=== PATIENT | female | born 1995 | race Caucasian/White ===

== ENCOUNTER → 2020-07-22 | Outpatient (CLI) | payer OTHER ==
--- NOTE | 2020-07-22 11:10 | Diagnostic Imaging Report ---
Indication: Neck lump. Right lobe of thyroid measures 5.2 x 1.7 x 2.0 cm and the left lobe measures 4.6 x 1.3 x 1.4 cm. Isthmus is 4 mm in thickness. Both lobes of thyroid are heterogeneous. There is a mixed echogenicity nodule in the mid right lobe measuring 1.1 x 0.8 x 1.0 cm. No microcalcifications are seen. No other thyroid masses are detected. IMPRESSION: Heterogeneous thyroid. There is a nodule in the mid right lobe.. This is a TI-RADS 4 lesion. Follow-up ultrasound at 1 year is recommended to confirm stability. Dictated by: Dictated on workstation # [id number]
== END ==
LOC: RAD 08:36
PROVIDERS: ATTEND Obstetrics & Gynecology
DX: E04.2 Nontoxic multinodular goiter (principal)
CPT/HCPCS: 76536

== ENCOUNTER → 2022-05-01 | Outpatient (CLI) | payer BC ==
--- NOTE | 2022-05-01 16:17 | Diagnostic Imaging Report ---
INDICATION: survey. TECHNIQUE: Multiple real-time grayscale images were obtained over the gravid uterus. COMPARISON: None. FINDINGS: There is a single live fetus in breech presentation. heart rate was recorded at 156 bpm. Placenta is posterior. No previa is seen. Amniotic fluid index is 12.3 cm. Cervical length is 4.1 cm. survey shows kidneys, bladder and stomach to be unremarkable. brain is unremarkable. There is a four-chamber heart. There is a three-vessel cord with normal insertion. spine is unremarkable. Biometrical measurements are as follows: Biparietal 5.40 cm, age 22 weeks 4 days. Head circumference 21.26 cm, age 23 weeks 3 days. Abdominal circumference 17.32 cm, age 22 weeks 2 days. Femur length 4.09 cm, age 23 weeks 2 days. Sonographic estimate age: 23 weeks 0 days. Sonographic estimated date of delivery: 08/28/2022. Estimated Weight: 531 gm (+/- 78 gm). LMP percentile: 9%. heart rate: 156 beats per minute. number: 1 of 1. IMPRESSION: Single live IUP approximately 23 weeks 0 days gestational age. Estimated date of confinement, sonographically, is 08/28/2022. Dictated by: Dictated on workstation # [id number]
== END ==
LOC: RAD 12:30
PROVIDERS: ATTEND Obstetrics & Gynecology
DX: Z34.02 Encounter for supervision of normal first pregnancy, second trimester (principal); Z3A.23 23 weeks gestation of pregnancy
CPT/HCPCS: 76805

== ENCOUNTER 2022-05-27 07:40 | Outpatient (CLI) | payer BC ==
[~2022-05-27] VITALS: Ht 162.6 cm; Wt 85.8 kg
[2022-05-27 07:10] VITALS: BP 108/61
[2022-05-27 07:40] VITALS: BP 108/61
[2022-05-27] MEDS ORDERED: PREN-102 PO (07:51)
[2022-05-27 08:21] LABS: BILIRUBIN,URINE NEGATIVE (NEGATIVE); CLARITY,URINE CLEAR; COLOR,URINE YELLOW; GLUCOSE, URINE (UA) NEGATIVE (NEGATIVE); KETONES,URINE NEGATIVE (NEGATIVE); LEUKOCYTE ESTERASE ,URINE 2+ (NEGATIVE); NITRITE,URINE NEGATIVE (NEGATIVE); PROTEIN,URINE NEGATIVE (NEGATIVE)
[2022-05-27 08:41] LABS: BACTERIA,URINE MODERATE /HPF
[2022-05-27 09:30] VITALS: BP 112/58
[2022-05-27] MEDS ORDERED: NITR-65 PO (09:56)
--- NOTE | 2022-05-28 08:16 | Physician Query-Final Dx ---
,05/28/22 0816: Clinic Account Progress/Dx Physician Query: Please give diagnosis Please include # weeks gestation Date of Service May 27, 2022 at 07:40 TOM LOONEY MD 05/28/22 1223: Clinic Account Progress/Dx DIAGNOSIS: Diagnosis 27 weeks gestation with false labor ,SepMay 28, 2022 08:16 TOM LOONEY MD May 28, 2022 12:23
== END 2022-05-27 10:00 | disposition home or self-care (01) ==
LOC: WSo 07:40 → LDRP 07:40 → WSo 10:00
PROVIDERS: ATTEND Obstetrics & Gynecology
DX: O42.912 Preterm premature rupture of membranes, unspecified as to length of time between rupture and onset of labor, second trimester (principal); Z3A.27 27 weeks gestation of pregnancy
CPT/HCPCS: 81000; 87088; 99214

== ENCOUNTER 2022-08-16 21:38 | Outpatient (CLI) | payer BC ==
[~2022-08-16] VITALS: Ht 162.6 cm; Wt 96.7 kg
[~2022-08-16 21:38] MED LIST: NITR-65 PO; PREN-102 PO
[2022-08-16 22:01] VITALS: BP 128/83
[2022-08-16 22:10] LABS: BILIRUBIN,URINE NEGATIVE (NEGATIVE); CLARITY,URINE CLEAR; COLOR,URINE YELLOW; GLUCOSE, URINE (UA) 1+ (NEGATIVE); KETONES,URINE NEGATIVE (NEGATIVE); LEUKOCYTE ESTERASE ,URINE TRACE (NEGATIVE); NITRITE,URINE NEGATIVE (NEGATIVE); PROTEIN,URINE NEGATIVE (NEGATIVE)
[2022-08-16 22:19] LABS: BACTERIA,URINE MODERATE /HPF; SQUAMOUS EPITHELIAL CELL,UR 0-2 /HPF; WBC,URINE 0-2 /HPF
[2022-08-16 22:27] VITALS: BP 128/83
[2022-08-16 22:32] VITALS: BP 121/76
[2022-08-16 23:02] VITALS: BP 112/60
[2022-08-16] MEDS ORDERED: INUL1TAB4 PO (23:33)
[2022-08-17 00:10] VITALS: BP 121/70
--- NOTE | 2022-08-17 09:00 | Physician Query-Final Dx ---
Clinic Account Progress/Dx Physician Query: Please give diagnosis Please include # weeks gestation Date of Service Aug 16, 2022 at 21:38 [facility],SepAug 17, 2022 09:00
== END 2022-08-16 23:59 ==
LOC: WSo 21:38 → LDRP 21:38 → WSo 23:59
PROVIDERS: ATTEND Obstetrics & Gynecology
DX: Z34.93 Encounter for supervision of normal pregnancy, unspecified, third trimester (principal); Z3A.39 39 weeks gestation of pregnancy
CPT/HCPCS: 81000; 87088

== ENCOUNTER 2022-08-19 01:01 | Inpatient (IN) | payer BC ==
[~2022-08-19] VITALS: Ht 162.6 cm; Wt 97.4 kg
[2022-08-19] VITALS (57 sets, daily range): BP systolic 108–196; BP diastolic 56–103
[~2022-08-19 01:01] MED LIST changes: +INUL1TAB4 PO
[2022-08-19 02:17] LABS: BILIRUBIN,URINE NEGATIVE (NEGATIVE); CLARITY,URINE CLEAR; COLOR,URINE YELLOW; GLUCOSE, URINE (UA) 2+ (NEGATIVE); KETONES,URINE TRACE (NEGATIVE); LEUKOCYTE ESTERASE ,URINE NEGATIVE (NEGATIVE); NITRITE,URINE NEGATIVE (NEGATIVE); PROTEIN,URINE NEGATIVE (NEGATIVE)
[2022-08-19 02:50] LABS: BACTERIA,URINE NEGATIVE /HPF; RBC,URINE RARE /HPF; WBC,URINE 0-2 /HPF
[2022-08-19] MEDS ORDERED: ACETAMINOPHEN 500 MG TAB (TYLENOL) PO ONE (04:00)
[2022-08-19] MEDS ORDERED: ACETAMINOPHEN 500 MG TAB (TYLENOL) ONE (04:03)
[2022-08-19] MEDS ORDERED: AMPICILLIN FOR IV USE 2,000 MG in NS (IVPB) 50 ML IV SCH (06:33)
[2022-08-19] MEDS ORDERED: AMPICILLIN 2,000 MG/14.8 ML (IV USE) ONE (06:35)
[2022-08-19] MEDS ORDERED: WATER (STERILE) FOR INJECTION 0 ML ONE (06:35)
[2022-08-19 06:45] LABS: BASOPHILS # (AUTO) 0.1 10^3/uL (0.0-0.1); BASOPHILS % (AUTO) 0 % (0-10); EOSINOPHILS # (AUTO) 0.5 10^3/uL (0.0-0.3); EOSINOPHILS % (AUTO) 3 % (0-10); HEMATOCRIT 33 % (35-52); LYMPHOCYTES # (AUTO) 3.2 10^3/uL (1.0-4.0); LYMPHOCYTES % (AUTO) 19 % (12-44); MEAN CORPUSCULAR HEMOGLOBIN 29 pg (25-34); MEAN CORPUSCULAR HGB CONC 33 g/dL (32-36); MEAN CORPUSCULAR VOLUME 86 fL (80-99); MEAN PLATELET VOLUME 9.6 fL (9.0-12.2); MONOCYTES # (AUTO) 1.2 10^3/uL (0.0-1.0); MONOCYTES % (AUTO) 7 % (0-12); NEUTROPHILS # (AUTO) 11.3 10^3/uL (1.8-7.8); NEUTROPHILS % (AUTO) 69 % (42-75); PLATELET COUNT 337 10^3/uL (130-400); WHITE BLOOD COUNT 16.3 10^3/uL (4.3-11.0)
[2022-08-19] MEDS ORDERED: D5 LR IV SOLUTION 1,000 ML IV SCH (06:45)
[2022-08-19] MEDS ORDERED: fentaNYL 2 mcg/ml BUPIVA 0.125 100 ML ONE (07:19)
[2022-08-19] MEDS ORDERED: NALOXONE 0.4 MG/ML 1 ML (NARCAN) VIAL IV PRN ×3 (08:00→18:15)
[2022-08-19] MEDS ORDERED: ONDANSETRON 4 MG/2 ML (SDV) Z0FRAN IV PRN (08:00)
[2022-08-19] MEDS ORDERED: diphenhydrAMINE 50 MG/ML INJ (BENADRYL) IV PRN (08:00)
[2022-08-19] MEDS ORDERED: LACTATED RINGERS 1,000 ML IV SCH (08:00)
[2022-08-19] MEDS ORDERED: METOCLOPRAMIDE INJ 10 MG/2 ML (REGLAN) IV PRN (08:00)
--- NOTE | 2022-08-19 08:02 | History & Physical-OB ---
OB - Chief Complaint & HPI Date/Time Date of Admission: Date of Admission: Aug 19, 2022 at 06:30 Date seen by a Provider: Aug 19, 2022 Time Seen by a Provider: 05:30 Chief Complaint/History OB-Reason for Admission/Chief: Onset of Labor Hx : 1 Hx Para: 0 Expected Date of Delivery: Aug 23, 2022 Gestational Age in Weeks: 39 Gestational Age in Days: 3 Admission Nurse Assessment Rev: Yes History of Labs B neg GBS pos Allergies and Home Medications Allergies Coded Allergies: No Known Drug Allergies (Unverified , 05/27/22) Patient Home Medication List Home Medication List Reviewed: Yes Inulin/Chromium Picolinate (Fiber Gummies) 2 Gram-100 Mcg Tab.chew, 1 EACH PO DAILY, (Reported) Entered as Reported by: FREDI LANE on 08/16/22 2333 Vits #93/Iron Fum/FA ( Formula Tablet) 9 Mg Iron-267 Mcg Tablet, 1 EACH PO, (Reported) Entered as Reported by: LUIS PARTIDA on 05/27/22 0751 Discontinued Medications Nitrofurantoin Monohyd/M-Cryst (Macrobid 100 mg Capsule) 100 Mg Capsule, 1 TAB PO BID Discontinued Reason: No Longer Taking Prescribed by: LUNA GUERRERO on 05/27/22 0956 OB - History Hx of Present Care: Yes Ultrasounds: Normal mid trimester US Obstetrical Complications: None Medical Complications: None Obstetrical History Hx : 1 Patient Past Medical History n/a Social History/Family History Alcohol Use: Denies Use Recreational Drug Use: No 2nd Hand Smoke Exposure: No Immunizations Influenza Vaccine Up-to-Date: Yes; Up-to-Date OB - Admission Exam Physical Exam Vitals: Vital Signs 08/19/22 01:00 Temp 36.6 Pulse 100 Resp 18 B/P (MAP) 130/68 Pulse Ox 96 O2 Delivery Room Air HEENT: NCAT Heart: Rhythm Normal Lungs: Clear Abdomen: Gravid Extremities: Normal Reflexes: Normal Cervical Dilatation: 4cm Effacement: 75% Station: -1 Membranes: Ruptured Heart Rate: 130's Accelerations: Accelerations Present Decelerations: No Decelerations Short Term Variability: Present Securities Lending Trader Variability: Average (6-25) Contractions on Admission: 6-10 Minutes Apart Intensity: Firm Labs Laboratory Tests Test 08/19/22 01:00 08/19/22 06:30 Range/Units Urine Color YELLOW Urine Clarity CLEAR Urine pH 7.0 5-9 Urine Specific Energy 1.020 1.016-1.022 Urine Protein NEGATIVE NEGATIVE Urine Glucose (UA) 2+ H NEGATIVE Urine Ketones TRACE H NEGATIVE Urine Nitrite NEGATIVE NEGATIVE Urine Bilirubin NEGATIVE NEGATIVE Urine Urobilinogen 0.2 < = 1.0 MG/DL Urine Leukocyte Esterase NEGATIVE NEGATIVE Urine RBC (Auto) TRACE-I H NEGATIVE Urine RBC RARE /HPF Urine WBC 0-2 /HPF Urine Crystals NONE /LPF Urine Bacteria NEGATIVE /HPF Urine Casts NONE /LPF Urine Mucus NEGATIVE /LPF Urine Culture Indicated NO White Blood Count 16.3 H 4.3-11.0 10^3/uL Red Blood Count 3.85 3.80-5.11 10^6/uL Hemoglobin 11.0 L 11.5-16.0 g/dL Hematocrit 33 L 35-52 % Mean Corpuscular Volume 86 80-99 fL Mean Corpuscular Hemoglobin 29 25-34 pg Mean Corpuscular Hemoglobin Concent 33 32-36 g/dL Red Cell Distribution Width 14.1 10.0-14.5 % Platelet Count 337 130-400 10^3/uL Mean Platelet Volume 9.6 9.0-12.2 fL Immature Granulocyte % (Auto) 1 % Neutrophils (%) (Auto) 69 42-75 % Lymphocytes (%) (Auto) 19 12-44 % Monocytes (%) (Auto) 7 0-12 % Eosinophils (%) (Auto) 3 0-10 % Basophils (%) (Auto) 0 0-10 % Neutrophils # (Auto) 11.3 H 1.8-7.8 10^3/uL Lymphocytes # (Auto) 3.2 1.0-4.0 10^3/uL Monocytes # (Auto) 1.2 H 0.0-1.0 10^3/uL Eosinophils # (Auto) 0.5 H 0.0-0.3 10^3/uL Basophils # (Auto) 0.1 0.0-0.1 10^3/uL Immature Granulocyte # (Auto) 0.1 0.0-0.1 10^3/uL OB - Assessment/Plan/Diagnosis Assessment Assessment: active labor Admission Dx 26 yo G1 @ 39 weeks Active labor GBS pos Admission Status: Inpatient Order (span 2 midnights) Reason for Inpatient Admission: 26 yo G1 @ 39 weeks Active labor GBS pos Plan Plan: Expectant Management Other Plan GBS prophylaxis, then will actively manage. JAS PANTOJA DO Aug 19, 2022 08:02
[2022-08-19] MEDS: fentaNYL 2 mcg/ml BUPIVA 0.125 100 ML EPI SCH ×2 (10:00→13:42)
[2022-08-19] MEDS: AMPICILLIN FOR IV USE 1,000 MG in NS (IVPB) 50 ML IV SCH ×2 (10:43→14:35)
[2022-08-19] MEDS ORDERED: OXYTOCIN PRE-MIX DRIP 500 ML IV SCH (12:30)
[2022-08-19] MEDS ORDERED: CATHETER FLUSH 10 ML SYR IV SCH ×2 (14:00→22:00)
[2022-08-19] MEDS ORDERED: LIDOCAINE 1% INJ 20 ML VIAL ONE (17:30)
[2022-08-19] MEDS: OXYTOCIN PRE-MIX DRIP 500 ML IV SCH ×2 (18:08→18:35)
[2022-08-19] MEDS ORDERED: BENZOCAINE/MENTHOL (DERMOPLAST) 56 ML CAN TP PRN (18:15)
[2022-08-19] MEDS ORDERED: DIBUCAINE 1% OINTMENT 30 GM TUBE TOP PRN (18:15)
[2022-08-19] MEDS ORDERED: KETOROLAC 30 MG/ML VIAL IVP ONE (18:15)
[2022-08-19] MEDS ORDERED: MEASLES,MUMPS,RUBELLA 1 EA INJ SQ ONE (18:15)
[2022-08-19] MEDS ORDERED: TETANUS,DIPTH,PERTUSS P/F (BOOSTRIX) 0.5 ML VIAL IM ONE (18:15)
[2022-08-19] MEDS ORDERED: WITCH HAZEL(TUCKS) 40 EA JAR TOP PRN (18:15)
--- NOTE | 2022-08-19 18:20 | OB Labor & Delivery Record ---
L&D History Date of Service Date of Service: Aug 19, 2022 History Expected Date of Delivery: Aug 23, 2022 Gestational Age in Weeks: 39 Hx : 1 Hx Para: 0 Complications Events: Routine care Operative Indications (Cesarea: N/A-Vaginal Delivery Intrapartal Events: None L&D Stage1 Stage One Onset of Labor - Date: Aug 19, 2022 Monitors and Tracing Monitor Mode: External Heart Rate: 150 Monitor Decelerations: None Station: 0 Vital Signs VS - Last 72 Hours, by Label 08/19/22 08/19/22 08/19/22 08/19/22 01:00 01:10 02:30 04:52 Temp 36.6 36.6 36.5 Pulse 100 100 90 83 Resp 18 18 18 18 B/P (MAP) 130/68 130/68 (88) 124/78 (93) 114/70 (85) Pulse Ox 96 96 O2 Delivery Room Air Room Air Room Air Room Air 08/19/22 08/19/22 08/19/22 08/19/22 07:21 07:27 07:33 07:40 Temp 36.8 Pulse 97 82 83 82 Resp 18 18 18 18 B/P (MAP) 134/78 (96) 112/69 (83) 133/85 (101) 133/69 (90) Pulse Ox 97 100 98 100 O2 Delivery Room Air Room Air Room Air Room Air 08/19/22 08/19/22 08/19/22 08/19/22 07:45 07:50 08:00 08:05 Pulse 73 87 91 78 Resp 18 18 18 18 B/P (MAP) 127/68 (87) 119/64 (82) 120/68 (85) 123/69 (87) Pulse Ox 99 99 100 100 O2 Delivery Room Air Room Air Room Air 08/19/22 08/19/22 08/19/22 08/19/22 08:10 08:15 08:30 08:45 Pulse 80 75 71 80 Resp 18 18 18 18 B/P (MAP) 121/67 (85) 116/72 (87) 121/78 (92) 117/70 (86) Pulse Ox 100 100 100 100 O2 Delivery Room Air Room Air Room Air Room Air 08/19/22 08/19/22 08/19/22 08/19/22 09:00 09:15 09:30 09:45 Pulse 89 80 89 97 Resp 18 18 18 18 B/P (MAP) 108/58 (75) 130/64 (86) 108/58 (75) 113/70 (84) Pulse Ox 100 100 100 100 O2 Delivery Room Air Room Air Room Air Room Air 08/19/22 08/19/22 08/19/22 08/19/22 10:00 10:15 10:30 10:45 Temp 36.8 Pulse 78 79 80 76 Resp 18 18 18 18 B/P (MAP) 130/72 (91) 130/69 (89) 130/72 (91) 127/78 (94) Pulse Ox 100 100 100 100 O2 Delivery Room Air Room Air Room Air Room Air 08/19/22 08/19/22 08/19/22 08/19/22 11:00 11:15 11:30 11:45 Pulse 71 76 73 85 Resp 18 18 18 18 B/P (MAP) 129/74 (92) 134/73 (93) 129/72 (91) 114/58 (76) Pulse Ox 100 100 100 100 O2 Delivery Room Air Room Air Room Air Room Air 08/19/22 08/19/22 08/19/22 08/19/22 12:00 12:15 12:30 12:45 Temp 36.8 Pulse 82 78 77 81 Resp 18 18 18 18 B/P (MAP) 115/64 (81) 116/62 (80) 132/62 (85) 127/73 (91) Pulse Ox 100 100 99 98 O2 Delivery Room Air Room Air Room Air Room Air 08/19/22 08/19/22 08/19/22 08/19/22 13:00 13:15 13:30 13:45 Pulse 92 82 90 78 Resp 18 18 18 18 B/P (MAP) 120/67 (84) 120/67 (84) 126/62 (83) 130/72 (91) Pulse Ox 98 99 100 100 O2 Delivery Room Air Room Air Room Air Room Air 08/19/22 08/19/22 08/19/22 08/19/22 14:00 14:15 14:30 14:45 Pulse 100 83 90 93 Resp 18 18 18 18 B/P (MAP) 130/61 (84) 117/56 (76) 121/70 (87) 136/67 (90) Pulse Ox 100 100 100 100 O2 Delivery Room Air Room Air Room Air Room Air 08/19/22 08/19/22 08/19/22 15:00 15:15 15:30 Pulse 82 87 83 Resp 18 18 18 B/P (MAP) 141/67 (91) 142/68 (92) 126/63 (84) Pulse Ox 100 100 100 O2 Delivery Room Air Room Air Room Air Rupture of Membranes Spontaneous Ruture of Membrane: No Amniotic Membrane Rupture Time: 06 Amniotic Membrane Fluid Desc.: Clear Vaginal Bleeding Description: Normal Show Induction/Anesthesia Epidural Cath Placement - Time: 726 Progress/Notes Patient presented in active labor, AROM performed and epidural placed. She progressed to complete and + 2 station. L&D Stage2 Stage Two Stage II Date: Aug 19, 2022 Monitors and Tracing Monitor Mode: External Heart Rate: 150 Monitor Accelerations: Uniform Monitor Decelerations: Variable Time Broker Variability: Average (6-10) Short Term Variability: Present Position: Right Occiput Anterior Presentation: Vertex Signs of Distress by FHT Signs of Distress Patient progressed part to + 3 station but maternal pushing for an hour became ineffective and patient morale was dropping. Vacuum discussed with patient to help facilatied delivery which patient agreed. Risk reviewed. Kiwi suction cup placed on flexion point, suction applied with handpiece to max pressure of 450 mmHg with next maternal push and gentle extension over RML delivered head. Suction released and remainder of the deliver was unremarkable. Cord Descript/Complications Cord Vessel Description: 3 Vessels Delivery Type Delivery Method: Low Vacuum Extraction Anterior Shoulder: Left Episiotomy/Perineal Laceration Laceraction(s)/Extensions: Yes Episiotomy Description: Right Mediolateral Degree (describe repair) RML repaired using 3-0 rapide and 2-0 vicryl suture in usual fashion. Condition of Infant Delivery 1 minute Comment: 8 5 minute Comment: 9 Notes Live female weight pending Condition of Infant Condition of : Living Exam: No Observed Abnormalities Resuscitation Resuscitation: N/A - Spontaneous Resp L&D Stage3 Stage Three Stage III Date: Aug 19, 2022 Pictocin Pitocin Administration mu/min: 6 Pitocin ml/hr: 6 Pitocin Administration Comment: 30 mu wide open after delivery of placenta Placenta Delivery Placenta Delivery: Spontaneous Delivery Summary Summary Estimated blood loss (mL): 350 Attending at delivery: Jas Pantoja DO Condition of Delivery Examined: Cervix Examined, Uterus Explored Condition of Mother stable Condition of Infant (s) stable JAS PANTOJA DO Aug 19, 2022 18:20
[2022-08-19] MEDS: DOCUSATE SODIUM 100 MG (COLACE) CAP PO SCH (22:50)
[2022-08-20 00:17] VITALS: BP 116/64
[2022-08-20] MEDS: IBUPROFEN 600 MG (MOTRIN) TAB PO SCH ×4 (00:18→18:39)
[2022-08-20 06:20] VITALS: BP 109/60
[2022-08-20 06:46] LABS: BASOPHILS # (AUTO) 0.1 10^3/uL (0.0-0.1); BASOPHILS % (AUTO) 0 % (0-10); EOSINOPHILS # (AUTO) 0.3 10^3/uL (0.0-0.3); EOSINOPHILS % (AUTO) 2 % (0-10); HEMATOCRIT 29 % (35-52); HEMOGLOBIN 9.3 g/dL (11.5-16.0); LYMPHOCYTES # (AUTO) 2.5 10^3/uL (1.0-4.0); LYMPHOCYTES % (AUTO) 15 % (12-44); MEAN CORPUSCULAR HEMOGLOBIN 28 pg (25-34); MEAN CORPUSCULAR HGB CONC 32 g/dL (32-36); MEAN CORPUSCULAR VOLUME 87 fL (80-99); MEAN PLATELET VOLUME 9.9 fL (9.0-12.2); MONOCYTES # (AUTO) 1.5 10^3/uL (0.0-1.0); MONOCYTES % (AUTO) 9 % (0-12); NEUTROPHILS # (AUTO) 12.1 10^3/uL (1.8-7.8); NEUTROPHILS % (AUTO) 73 % (42-75); PLATELET COUNT 284 10^3/uL (130-400); WHITE BLOOD COUNT 16.5 10^3/uL (4.3-11.0)
--- NOTE | 2022-08-20 07:39 | Postpartum Progress Note ---
LUIS MARIN 08/20/22 0739: Note Note Day # 1 Subjective: Patient is without complaints. Ambulating, voiding. Tolerating a regular diet without nausea or vomiting. Normal lochia. Pain is well controlled with oral pain medications. Objective: Physical Exam: General - Alert and oriented, no apparent distress Abdomen - Soft, appropriately tender to palpation, non-distended, fundus firm at umbilicus Extremities - no edema, negative Lisa's bilaterally Assessment: PPD 1 vacuum assisted vaginal delivery Acute blood loss anemia - denies significant bleeding over night Recovering well, hemodynamically stable Plan: Routine care. Encourage breast feeding. Encourage ambulation. Ferrous sulfate supplementation. Plan for discharge tomorrow Vitals - Labs Vital Signs - I&O Vital Signs Date Time Temp Pulse Resp B/P (MAP) Pulse Ox O2 Delivery O2 Flow Rate FiO2 08/20/22 06:20 36.3 84 18 109/60 (76) 98 Room Air 08/20/22 00:17 36.3 95 18 116/64 (81) 96 Room Air 08/19/22 21:12 36.6 97 18 123/63 (83) Room Air 08/19/22 20:57 88 18 126/61 (82) Room Air 08/19/22 20:42 106 18 122/63 (82) Room Air 08/19/22 20:27 127 18 120/76 (91) Room Air 08/19/22 20:12 103 18 114/57 (76) Room Air 08/19/22 19:57 102 18 126/62 (83) Room Air 08/19/22 18:45 90 18 131/76 (94) Room Air 08/19/22 18:30 88 18 125/71 (89) Room Air 08/19/22 18:00 98 18 138/64 (88) Room Air 08/19/22 17:45 18 Room Air 08/19/22 17:30 18 Room Air 08/19/22 17:15 18 Room Air 08/19/22 17:13 37.1 08/19/22 17:00 18 Room Air 08/19/22 16:45 96 18 172/77 (108) Room Air 08/19/22 16:30 100 18 196/103 (134) Room Air 08/19/22 16:15 90 18 144/77 (99) 100 Room Air 08/19/22 16:00 90 18 137/73 (94) 100 Room Air 08/19/22 15:45 90 18 113/65 (81) 100 Room Air 08/19/22 15:30 83 18 126/63 (84) 100 Room Air 08/19/22 15:15 87 18 142/68 (92) 100 Room Air 08/19/22 15:00 82 18 141/67 (91) 100 Room Air 08/19/22 14:45 93 18 136/67 (90) 100 Room Air 08/19/22 14:30 90 18 121/70 (87) 100 Room Air 08/19/22 14:15 83 18 117/56 (76) 100 Room Air 08/19/22 14:00 100 18 130/61 (84) 100 Room Air 08/19/22 13:45 78 18 130/72 (91) 100 Room Air 08/19/22 13:30 90 18 126/62 (83) 100 Room Air 08/19/22 13:15 82 18 120/67 (84) 99 Room Air 08/19/22 13:00 92 18 120/67 (84) 98 Room Air 08/19/22 12:45 81 18 127/73 (91) 98 Room Air 08/19/22 12:30 36.8 77 18 132/62 (85) 99 Room Air 08/19/22 12:15 78 18 116/62 (80) 100 Room Air 08/19/22 12:00 82 18 115/64 (81) 100 Room Air 08/19/22 11:45 85 18 114/58 (76) 100 Room Air 08/19/22 11:30 73 18 129/72 (91) 100 Room Air 08/19/22 11:15 76 18 134/73 (93) 100 Room Air 08/19/22 11:00 71 18 129/74 (92) 100 Room Air 08/19/22 10:45 36.8 76 18 127/78 (94) 100 Room Air 08/19/22 10:30 80 18 130/72 (91) 100 Room Air 08/19/22 10:15 79 18 130/69 (89) 100 Room Air 08/19/22 10:00 78 18 130/72 (91) 100 Room Air 08/19/22 09:45 97 18 113/70 (84) 100 Room Air 08/19/22 09:30 89 18 108/58 (75) 100 Room Air 08/19/22 09:15 80 18 130/64 (86) 100 Room Air 08/19/22 09:00 89 18 108/58 (75) 100 Room Air 08/19/22 08:45 80 18 117/70 (86) 100 Room Air 08/19/22 08:30 71 18 121/78 (92) 100 Room Air 08/19/22 08:15 75 18 116/72 (87) 100 Room Air 08/19/22 08:10 80 18 121/67 (85) 100 Room Air 08/19/22 08:05 78 18 123/69 (87) 100 Room Air 08/19/22 08:00 91 18 120/68 (85) 100 08/19/22 07:50 87 18 119/64 (82) 99 Room Air 08/19/22 07:45 73 18 127/68 (87) 99 Room Air 08/19/22 07:40 82 18 133/69 (90) 100 Room Air I & O 08/20/22 07:00 Intake Total 2064.8 ml Balance 2064.8 ml Labs Laboratory Tests 08/20/22 05:25: White Blood Count 16.5H, Red Blood Count 3.30L, Hemoglobin 9.3L, Hematocrit 29L, Mean Corpuscular Volume 87, Mean Corpuscular Hemoglobin 28, Mean Corpuscular Hemoglobin Concent 32, Red Cell Distribution Width 14.6H, Platelet Count 284, Mean Platelet Volume 9.9, Immature Granulocyte % (Auto) 1, Neutrophils (%) (Auto) 73, Lymphocytes (%) (Auto) 15, Monocytes (%) (Auto) 9, Eosinophils (%) (Auto) 2, Basophils (%) (Auto) 0, Neutrophils # (Auto) 12.1H, Lymphocytes # (Auto) 2.5, Monocytes # (Auto) 1.5H, Eosinophils # (Auto) 0.3, Basophils # (Auto) 0.1, Immature Granulocyte # (Auto) 0.1 JAS PANTOJA DO 08/20/22 0805: Note Note Verification and Attestation of Medical Student E/M Service A medical student performed and documented this service in my presence. I reviewed and verified all information documented by the medical student and made modifications to such information, when appropriate. I personally performed the physical exam and medical decision making. Jas Pantoja, Aug 20, 2022,08:04 LUIS MARIN Aug 20, 2022 07:39 JAS PANTOJA DO Aug 20, 2022 08:05
--- NOTE | 2022-08-20 08:08 | Discharge Inst-Women's Service ---
Discharge Inst-Women's Serv Depart Medication/Instructions New, Converted or Re-Newed RX: Transmitted to Pharmacy Problems Reviewed?: Yes Consults/Follow Up Additional Follow Up: Yes Activity Activity: Activity as Tolerated Driving Instructions: No Driving for 1 Week NO SMOKING: NO SMOKING Nothing Inside Vagina: No Douching, No [place], No Tampons Diet Discharge Diet: No Restrictions Symptoms to Report to : Bleeding Excessive, Pain Increased, Fever Over 101 Degrees F, Vaginal Bleeding Increase, Questions/Concerns For Any Problems or Questions: Contact Your Physician JAS PANTOJA DO Aug 20, 2022 08:07
[2022-08-20] MEDS ORDERED: DIBU30OI TOP (08:11)
[2022-08-20] MEDS ORDERED: DOCU100C37 PO (08:11)
[2022-08-20] MEDS ORDERED: ACHD5005 PO (08:11)
[2022-08-20] MEDS ORDERED: IBUP-844 PO (08:11)
[2022-08-20] MEDS ORDERED: BENZ78AE5 TP (08:11)
[2022-08-20 10:40] VITALS: BP 115/59
[2022-08-20] MEDS: FERROUS SULF 325 MG (IRON) TAB PO SCH (12:16)
[2022-08-20] MEDS: DOCUSATE SODIUM 100 MG (COLACE) CAP PO SCH ×2 (12:16→21:20)
--- NOTE | 2022-08-20 12:52 | Anesthesia-Regional Post-Op ---
Regional Patient Condition Mental Status: Alert, Oriented x3 Circulation: Same as Pre-Op Headache: Absent Sensation: Full Recovery Motor Block: Absent Post Op Complications Complications None Follow Up Care/Instructions Patient Instructions None needed. Anesthesia/Patient Condition Patient is doing well, no complaints, stable vital signs, no apparent adverse anesthesia problems. No complications reported per nursing. CHARIS BEACH CRNA Aug 20, 2022 12:52
[2022-08-20 15:34] VITALS: BP 126/70
[2022-08-20] MEDS: HYDROcodone/APAP 5 MG/325 MG (LORTAB) TAB PO PRN ×2 (15:38→21:34)
[2022-08-20] MEDS: PRENATAL VITAMIN 1 EA TAB PO SCH (18:19)
[2022-08-20 21:20] VITALS: BP 118/71
[2022-08-21 01:19] VITALS: BP 122/69
[2022-08-21] MEDS: IBUPROFEN 600 MG (MOTRIN) TAB PO SCH ×3 (01:19→08:43)
[2022-08-21] MEDS: PRENATAL VITAMIN 1 EA TAB PO SCH (08:43)
[2022-08-21] MEDS: FERROUS SULF 325 MG (IRON) TAB PO SCH (08:43)
[2022-08-21] MEDS: DOCUSATE SODIUM 100 MG (COLACE) CAP PO SCH (08:43)
[2022-08-21 08:44] VITALS: BP 120/74
[2022-08-21] MEDS: HYDROcodone/APAP 5 MG/325 MG (LORTAB) TAB PO PRN (08:50)
--- NOTE | 2022-08-21 10:10 | Postpartum Progress Note ---
Note Note Day # 2 Subjective: Patient is without complaints. Ambulating, voiding. Tolerating a regular diet without nausea or vomiting. Normal lochia. Pain is well controlled with oral pain medications. Physical Exam: General - Alert and oriented, no apparent distress Abdomen - Soft, appropriately tender to palpation, non-distended, fundus firm at umbilicus Extremities - no edema, negative Lisa's bilaterally Assessment: Post- day # 2, status post vaginal delivery. Recovering well, hemodynamically stable Acute blood loss anemia Plan: Routine care. Encourage breast feeding. Encourage ambulation. Ferrous sulfate supplementation. Plan for discharge today Vitals - Labs Vital Signs - I&O Vital Signs Date Time Temp Pulse Resp B/P (MAP) Pulse Ox O2 Delivery O2 Flow Rate FiO2 08/21/22 08:44 36.3 86 18 120/74 (89) 97 Room Air 08/21/22 01:19 36.0 82 18 122/69 (86) 98 Room Air 08/20/22 21:20 36.7 92 18 118/71 (87) 97 Room Air 08/20/22 15:34 36.0 98 18 126/70 (88) 97 Room Air 08/20/22 10:40 36.3 90 18 115/59 (77) 99 Room Air MURRAY SHER APRN Aug 21, 2022 10:10
== END 2022-08-21 12:37 | disposition home or self-care (01) | DRG 806 ==
LOC: WSo 01:01 → LDRP 01:03 → WSo 06:29 → LDRP 06:30
PROVIDERS: ADMIT Obstetrics & Gynecology; ATTEND Obstetrics & Gynecology
PROC: 10D07Z6 Extraction of Products of Conception, Vacuum, Via Natural or Artificial Opening (ICD-10-PCS; principal; 2022-08-19)
PROC: 0W8NXZZ Division of Female Perineum, External Approach (ICD-10-PCS; 2022-08-19)
PROC: 10907ZC Drainage of Amniotic Fluid, Therapeutic from Products of Conception, Via Natural or Artificial Opening (ICD-10-PCS; 2022-08-19)
DX: O99.824 Streptococcus B carrier state complicating childbirth (principal); D62 Acute posthemorrhagic anemia; Z37.0 Single live birth; Z3A.39 39 weeks gestation of pregnancy; Z79.4 Long term (current) use of insulin; O90.81 Anemia of the puerperium
CPT/HCPCS: 36415; 81000; 85025; 86780; 86850; 86900; 86901; 99212

== ENCOUNTER → 2023-03-10 | Outpatient (CLI) | payer BC ==
[~2023-03-10] MED LIST changes: +ACHD5005 PO; +BENZ78AE5 TP; +DIBU30OI TOP; +DOCU100C37 PO; +IBUP-844 PO
--- NOTE | 2023-03-10 14:48 | Diagnostic Imaging Report ---
INDICATION: Palpable lump in the right breast. FINDINGS: Sonographic interrogation of the area of lump in the upper right breast was performed. No sonographic abnormality is identified. No solid or cystic mass is detected. IMPRESSION: No sonographic abnormality is detected. ACR BI-RADS Category 1: Negative. Dictated by: Dictated on workstation # [id number]
== END ==
LOC: RAD 13:35
PROVIDERS: ATTEND Nurse Practitioner Women's Health
DX: N63.11 Unspecified lump in the right breast, upper outer quadrant (principal)